=== PATIENT | female | born 1990 | race Caucasian/White ===

== ENCOUNTER 2016-11-22 23:27 | Emergency (ER) | payer OTHER ==
[~2016-11-22] VITALS: Ht 157.5 cm; Wt 78.7 kg
[~2016-11-22 23:27] MED LIST: FIORICET,ESG1 TABLET PO; IMITREX50 MG PO; MEDROL DOSEPAK4 MG PO; REGLAN10 MG PO
[2016-11-23] MEDS ORDERED: SKELAXIN800 MG PO (00:38)
[2016-11-23 01:01] VITALS: BP 132/87
== END 2016-11-23 01:04 | disposition home or self-care (01) ==
LOC: EME 23:27
DX: S46.911A Strain of unspecified muscle, fascia and tendon at shoulder and upper arm level, right arm, initial encounter (principal); X58.XXXA Exposure to other specified factors, initial encounter
CPT/HCPCS: 73030; 99281; 99284